=== PATIENT | male | born 1960 | race Caucasian/White ===

== ENCOUNTER 2024-04-08 17:46 | Emergency (ER) | payer BC, SELFPAY ==
[2024-04-08 17:53] VITALS: BP 155/86; PULSE 74; TEMP 36.8; O2SAT 100; BMI 26.4
--- NOTE | 2024-04-08 17:59 | XR_ITS ---
The [address] [address] Patient Name: CESARIO BRIGGS MRN: [id number] date: 1960 Sex: M Assigned Patient Location: ER Current Patient Location: Accession/Order Number: [id number] Exam Date: 04/08/2024 18:00 Report Date: 04/08/2024 19:57 At the request of: DORIS LANE Procedure: XR hand LT 2V EXAM: XR hand LT 2V HISTORY: left middle finger injury COMPARISON: None. TECHNIQUE: 2 views of the left hand were obtained. FINDINGS: There is a fracture along the palmar aspect of the base of the middle phalanx of the third digit, which extends to the articular surface. The fracture fragment is essentially nondisplaced. There is no other evidence of an acute fracture or dislocation. There are degenerative changes present at the distal interphalangeal joints, with a soft tissue calcification along the dorsal aspect of the third digit at the distal interphalangeal joint. Moderately prominent degenerative changes are present at the first carpometacarpal joint, accompanied by osteophytes. Remainder the joint spaces are relatively intact. XR/XR hand LT 2V IMPRESSION: There is a small essentially nondisplaced fracture seen along the palmar aspect of the base of the middle phalanx of the third digit. There is no other evidence of an acute fracture or dislocation. Degenerative changes are seen in the wrist and hand. No radiopaque foreign body is identified. Electronically authenticated by: VERA BEAL Date: 04/08/2024 19:57
--- NOTE | 2024-04-08 18:24 | ED_ITS ---
HPI HPI - General Adult General Chief complaint: Extremity Injury, Upper Stated complaint: upper extremity injury Time Seen by Provider: 04/08/24 17:56 Mode of arrival: walk-in History of Present Illness HPI narrative: The patient presented to us with a left middle finger injury after he was playing with his dog and he stomped his finger with his dog head The patient denies any other injury Related Data Allergies Allergy/AdvReac Type Severity Reaction Status Date / Time No Known Drug Allergies Allergy Verified 04/08/24 17:53 Opioid HPI Opioid Management Most Recent Opioid Data: No Data to Display Review of Systems ROS Status of ROS 10 or more systems reviewed and unremark able except as noted in history and below Exam Narrative Exam Narrative: Nurses notes and vital signs reviewed and patient is not hypoxic. Left hand examination: have a obvious deformity of the distal interphalangeal joint of the left middle finger mostly mildly towards flexion, there is localized swelling and there is no vascular injury detected General: Well-appearing and in no apparent distress. Skin: Warm, dry, no pallor noted. No rash. Head: Normocephalic, atraumatic. Neck: Supple, non-tender. Eye: Pupils are equal, round and EOMI. No scleral icterus. Ears, Nose, Mouth, and Throat: TM are clear, no nasal mucosal hypertrophy. Oral mucosa is moist, no posterior oropharynx erythema, uvula is mid-line Cardiovascular: Regular Rate and Rhythm without murmur, gallop or rub. Respiratory: No accessory muscle use or respiratory distress. Lungs are clear to auscultation, no wheezing, rales or rhonchi Chest Wall: no tenderness Back: No midline thoracic or lumbar vertebral tenderness. No CVA tenderness Musculoskeletal: normal ROM, no calf or popliteal tenderness, no lower extremity edema/swelling GI: Abdomen is soft, non-distended. Normal bowel sounds. No masses appreciated. No tenderness to palpation. No rebound, guarding, or rigidity noted. Neurological: A&O x4. No cranial nerve dysfunction observed. No truncal ataxia. Moves all extremities. Sensation intact. Psychiatric: Cooperative and interactive. Normal mood and affect. Constitutional Vital Signs, click to edit/add: Last Vital Signs Temp 98.2 F 04/08/24 17:53 Pulse 74 04/08/24 17:53 Resp 18 04/08/24 17:53 BP 155/86 H 04/08/24 17:53 Pulse Ox 100 04/08/24 17:53 O2 Del Method Room Air 04/08/24 17:53 Course Vital Signs Vital signs: Vital Signs Temperature 98.2 F 04/08/24 17:53 Pulse Rate 74 04/08/24 17:53 Respiratory Rate 18 04/08/24 17:53 Blood Pressure 155/86 H 04/08/24 17:53 Pulse Oximetry 100 04/08/24 17:53 Oxygen Delivery Method Room Air 04/08/24 17:53 Temperature 98.2 F 04/08/24 17:53 Pulse Rate 74 04/08/24 17:53 Respiratory Rate 18 04/08/24 17:53 Blood Pressure 155/86 H 04/08/24 17:53 Pulse Oximetry 100 04/08/24 17:53 Oxygen Delivery Method Room Air 04/08/24 17:53 Medical Decision Making MDM Narrative Medical decision making narrative: X-ray of the patient left hand shows possible fracture The patient will have a splint applied The patient will be discharged once his x-ray is back his care was transferred to Dr. Curtis Discharge Plan Discharge Patient Disposition: Still a Patient
[2024-04-08] MEDS: LIDOCAINE HCL 1% 100 MG/10 ML MDV INJ (19:39)
== END 2024-04-08 19:42 | disposition home or self-care (01) ==
PROVIDERS: Emergency Provider Emergency Medicine; PCP Internal Medicine
DX: S62.653A Nondisplaced fracture of middle phalanx of left middle finger, initial encounter for closed fracture (principal); M20.012 Mallet finger of left finger(s); W54.1XXA Struck by dog, initial encounter
CPT/HCPCS: 29130; 73120; 99283